=== PATIENT | male | born 1985 | race Two or more races ===

== ENCOUNTER 2023-03-18 08:30 | Emergency (ER) | payer OTHER, SELFPAY ==
[2023-03-18] VITALS (13 sets, daily range): BP systolic 132; BP diastolic 80–87; PULSE 81–96; RESP 12–20; TEMP 36.8; O2SAT 92–99; BMI 45.6
--- NOTE | 2023-03-18 08:47 | ECG_ITS ---
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
--- NOTE | 2023-03-18 08:48 | ED.GENADUL1 ---
HPI - General Adult General Chief complaint: Shortness of Breath/Dyspnea Stated complaint: SHORTNESS OF BREATH Time Seen by Provider: 03/18/23 08:47 Source: patient Mode of arrival: walk-in History of Present Illness HPI narrative: Patient is a 38-year-old male who is presenting to the Emergency Room today with chief complaint of 2 weeks of sinus congestion, pressure, dry cough, rhinorrhea and flulike symptoms. Patient smokes cigarettes. Patient has a history of asthma, diabetes, cholesterol. Patient takes oral tablets and does long-acting insulin for his diabetes, he does have an client experience specialist. Patient is taking no medication bunb-mot-opjnvgr in the past 2 weeks to help with any of his symptoms. Patient did not go to work today. Patient did not speak to his PCP or client experience specialist about his symptoms in the past 2 weeks. Patient has no other sick contacts, no traveling. No chest pain or shortness of breath. No abdominal pain, nausea or vomiting. Patient has no other acute complaints. . All systems are negative except as noted/marked. All systems reviewed and otherwise negative. . Nurses note and vital signs reviewed and patient is not hypoxic. General: The patient appears well and in no apparent distress. Patient is resting comfortably on cart. Patient is not toxic, lethargic, or listless Skin: Warm, dry, no pallor noted. There is no rash noted. No petechiae, purpura. Head: Normocephalic, atraumatic; Mild tenderness to paalpation to bilateral anterior frontal and maxillary sinuses, Eye: Normal conjunctiva, no drainage, EOMI. PERRL Ears, Nose, Mouth, and Throat: oral mucosa is moist. Nares patent. Mouth without vesicles. Clear drainage noted to the posterior pharynx. Cardiovascular: Regular Rate and Rhythm, no murmur, gallop, rub Respiratory: Patient is in no distress, no accessory muscle use, lungs are clear to auscultation, no wheezing, rales or rhonchi Back: non-tender, no CVA tenderness bilaterally to percussion. No CT LS midline pain GI: soft, obese, no tenderness to palpation, no masses appreciated. No rebound, guarding, or rigidity noted. No flank pain bilateral, No distention Musculoskeletal: Patient has full range of motion of all of the extremities, no motor, sensory, or focal neurological deficits Neurological: A&O x3, normal speech Psychiatric: Cooperative Related Data Home Medications Medication Instructions Recorded Confirmed albuterol sulfate 90 mcg/actuation 2 puff inhalation Q4H PRN 03/18/23 03/18/23 aerosol inhaler shortness of breath or wheezing fenofibrate 160 mg tablet 160 mg PO DAILY 03/18/23 03/18/23 insulin aspart U-100 100 unit/mL 1 sliding scale dose subcut DAILY 03/18/23 03/18/23 (3 mL) subcutaneous pen insulin glargine-yfgn 100 unit/mL 50 unit subcut BID 03/18/23 03/18/23 (3 mL) subcutaneous pen ipratropium 20 mcg-albuterol 100 1 puff inhalation BID 03/18/23 03/18/23 mcg/actuation mist for inhalation (Combivent Respimat) lisinopril 20 mg tablet 20 mg PO DAILY 03/18/23 03/18/23 metformin 1,000 mg tablet 1,000 mg PO BID 03/18/23 03/18/23 rosuvastatin 20 mg tablet 20 mg PO DAILY 03/18/23 03/18/23 sertraline 50 mg tablet 75 mg PO Q24H 03/18/23 03/18/23 Previous Rx's Medication Instructions Recorded doxycycline hyclate 100 mg tablet 100 mg PO BID 10 days #20 tabs 03/18/23 Allergies Allergy/AdvReac Type Severity Reaction Status Date / Time No Known Drug Allergies Allergy Verified 03/18/23 08:40 PFSH PFSH Social History Smoking status: Current every day smoker Exam Constitutional Vital Signs, click to edit/add: Last Vital Signs Temp 98.3 F 03/18/23 08:36 Pulse 96 H 03/18/23 09:10 Resp 19 03/18/23 09:10 BP 132/87 03/18/23 08:39 Pulse Ox 95 03/18/23 10:10 O2 Del Method Room Air 03/18/23 08:36 Course Vital Signs Vital signs: Vital Signs Temperature 98.3 F 03/18/23 08:36 Pulse Rate 86 03/18/23 08:36 Respiratory Rate 20 03/18/23 08:36 Blood Pressure 132/87 03/18/23 08:36 Pulse Oximetry 96 03/18/23 08:36 Oxygen Delivery Method Room Air 03/18/23 08:36 Temperature 98.3 F 03/18/23 08:36 Pulse Rate 96 H 03/18/23 09:10 Respiratory Rate 19 03/18/23 09:10 Blood Pressure 132/87 03/18/23 08:39 Pulse Oximetry 95 03/18/23 10:10 Oxygen Delivery Method Room Air 03/18/23 08:36 Medical Decision Making MDM Narrative Medical decision making narrative: Patient chest x-ray shows no acute cardiopulmonary disease, no infiltrate, no effusion. Education was done at bedside and taking olxn-zap-xiboige products and medications to help with sinus symptoms along with antibiotic because patient is diabetic and a smoker and had sinus symptoms for 2 weeks. Patient will follow-up with PCP. Patient is instructed to take all medications as listed on his discharge papers. No questions at discharge ECG Data Attestation: I personally reviewed and interpreted this ECG as follows: (EKG interpretation. Normal sinus rhythm 81 beats a minute. Normal axis deviation. No acute ST elevation, no acute ectopy. T-wave inversion in lead V6, also in aVF and lead 3. Nonspecific EKG changes, ST depression and T-wave inversion in lead aVF, no reciprocal changes. ) Interpretation: Compared to old EKG on 01/12/2021, patient had T wave inversion in V6 at that time, changes in aVF are new. In comparing EKG to 11/16/2021, this is similar to EKG in 01/12/2021, and different from today's EKG. Today's EKG shows ST depression with T-wave inversion in aVF, V3 has T-wave inversion as well. No ST elevation and today's EKG. Discharge Plan Discharge Chief Complaint: Shortness of Breath/Dyspnea Clinical Impression: URI (upper respiratory infection), Sinusitis, Continuous tobacco abuse Patient Disposition: Home, Self-Care Time of Disposition Decision: 10:36 Condition: Fair Prescriptions / Home Meds: New doxycycline hyclate 100 mg tablet 100 mg PO BID 10 Days Qty: 20 0RF No Action albuterol sulfate 90 mcg/actuation HFA aerosol inhaler 2 puff INHALATION Q4H PRN (Reason: shortness of breath or wheezing) Combivent Respimat 20-100 mcg/actuation mist 1 puff INHALATION BID lisinopril 20 mg tablet 20 mg PO DAILY metformin 1,000 mg tablet 1,000 mg PO BID rosuvastatin 20 mg tablet 20 mg PO DAILY sertraline 50 mg tablet 75 mg PO Q24H fenofibrate 160 mg tablet 160 mg PO DAILY insulin aspart U-100 100 unit/mL (3 mL) insulin pen 1 sliding scale dose SUBCUT DAILY insulin glargine-yfgn 100 unit/mL (3 mL) insulin pen 50 unit SUBCUT BID Instructions: How to Stop Smoking (ED), Sinusitis (ED), Upper Respiratory Infection (ED) Additional Instructions: Using gebu-qch-praaooa DayQuil, NyQuil, Flonase. Use Tylenol Motrin for aches and pains. Use anti-inflammatories to help with inflammation sinuses. Increase fluids. Follow-up with her PCP if no improvement in the next week. Take medication and all ozmt-fed-nmzkxae medications as prescribed. Stand Alone Forms: Portal Instructions Referrals: CARYL DRIVER [Primary Care Provider] - 1 week
[2023-03-18] MEDS: IPRATROPIUM/ALBUTEROL SULFATE 3 ML AMPUL.NEB IH (09:00)
--- NOTE | 2023-03-18 09:35 | XR_ITS ---
The [address] [address] Patient Name: NICKY OCONNOR MRN: [id number] date: 1985 Sex: M Assigned Patient Location: ER Current Patient Location: Accession/Order Number: [id number] Exam Date: 03/18/2023 09:30 Report Date: 03/18/2023 09:50 At the request of: HERMES HERNANDEZ Procedure: XR chest 2V EXAM: Chest, PA and lateral: HISTORY: Shortness of breath and congestion for a few days. History of asthma. Comparison studies: 10/24/2022 TECHNIQUE: Frontal and lateral views of the chest were obtained. FINDINGS: The lungs are well-inflated and clear. The heart is normal in size. No obvious mass or adenopathy is seen. Osseous structures are normal. XR/XR chest 2V IMPRESSION: No acute process in the lungs. If clinical concern remains, however, consider further evaluation with CT of the chest. Electronically authenticated by: SINGH GIRALDO Date: 03/18/2023 09:50
== END 2023-03-18 10:45 | disposition home or self-care (01) ==
PROVIDERS: Emergency Provider Emergency Medicine; PCP Family Medicine
DX: J06.9 Acute upper respiratory infection, unspecified (principal); J32.9 Chronic sinusitis, unspecified; F17.210 Nicotine dependence, cigarettes, uncomplicated; Z79.899 Other long term (current) drug therapy; J45.909 Unspecified asthma, uncomplicated; E11.9 Type 2 diabetes mellitus without complications; E78.00 Pure hypercholesterolemia, unspecified; Z79.4 Long term (current) use of insulin; Z79.84 Long term (current) use of oral hypoglycemic drugs
CPT/HCPCS: 71046; 93005; 94640; 99284

== ENCOUNTER 2025-03-01 08:49 | Outpatient (OUT) | payer OTHER, SELFPAY ==
--- NOTE | 2025-03-01 09:00 | ECG_ITS ---
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
== END 2025-03-01 08:50 | disposition home or self-care (01) ==
LOC: CARD 08:50
PROVIDERS: PCP Family Medicine; Visit Provider Nurse Practitioner
DX: E78.2 Mixed hyperlipidemia (principal); E11.65 Type 2 diabetes mellitus with hyperglycemia; Z79.4 Long term (current) use of insulin; I10 Essential (primary) hypertension; R07.89 Other chest pain
CPT/HCPCS: 93005

== ENCOUNTER 2025-04-10 10:16 | Outpatient (OUT) | payer OTHER, SELFPAY ==
--- OUTSIDE RECORDS SUMMARY | 2025-04-10 10:20 | XMS_ITS | Encounter Summary ---
Author Organization [facility] Address [address] [place] [address] Care Team Providers Care Hospital Insurance Clerk Name Role Phone Alison Wilson MD Unavailable [phone] Carroll Del Valle MD Primary Care Provider [phone] Anabel Waggoner NP Unavailable [phone] Encounter Details Date Type Department Care Team (Late st Contact Info) Description 02/12/2025 Abstract [facility] [address] [facility] [address] [place] [phone] Elizabeth Anand, [address] [facility] [address] [place] [address] Social History Tobacco Use Types Packs/Day Years Used Date Smoking Tobacco: Former Cigarettes 0.5 26.7 S tarted: 06/27/1997 Passive Smoke Exposure: Current Smokeless Tobacco: Current Alcohol Use Standard Drinks/Week Comments Not Currently 0 (1 standard drink = 0.6 oz pure alcohol) caffeine: more than 4 cups per day B1300 Health Literacy Answer Date Recor ded How often do you need to hav e someone help you when you read instructions, pamphlets, or other written material from your doctor or pharmacy? Never 12/25/2023 Social Connection and Isolation Panel Answer Date Recorded In a typical week, how many times do you talk on the phone with family, friends, or neighbors? Once a week 12/25/2023 How often do you get together with friends or re latives? Never 12/25/2023 How often do you attend anabaptism or synagogue serv ices? Never 12/25/2023 Do you belong to any clubs o r organizations such as anabaptism groups, unions, fraternal or athletic groups, or school groups? No 12/25/2023 How often do you attend meet ings of the clubs or organizations you belong to? Never 12/25/2023 Are you , , di vorced, , never , or living with a partner? 12/25/2023 AUDIT-C Answer Date Recorded Q1: How often do you have a drink containing alc ohol? Monthly or less 12/25/2023 Q2: How many drinks containi ng alcohol do you have on a typical day when you are drinking? 3 or 4 12/25/2023 Q3: How often do you have si x or more drinks on one occasion? Less than monthly 12/25/2023 Overall Financial Resource Strain (CARDIA) Answe r Date Recorded How hard is it for you to pa y for the very basics like food, housing, medical care, and heating? Very hard 12/25/2023 PHQ-2 Answer Date Recorded Patient Health Questionnaire-2 Score 0 11/20/2024 [facility] - Occupational Stress Questionnaire Answer Date Recorded Do you feel stress - tense, restless, nervous, or anxious, or unable to sleep at night because your mind is troubled all the time - these days? Only a little 12/25/2023 Exercise Vital Sign Answer Date Recorde d On average, how many days pe r week do you engage in moderate to strenuous exercise (like a brisk walk)? 2 days 12/25/2023 On average, how many minutes do you engage in exercise at this level? 10 min 12/25/2023 Hunger Vital Sign Answer Date Recorded Within the past 12 months, y ou worried that your food would run out before you got the money to buy more. Often true 12/25/19 24 Within the past 12 months, t he food you bought just didn't last and you didn't have money to get more. Often true 12/25/2023 PRAPARE - Transportation Answer Date Re corded In the past 12 months, has l ack of transportation kept you from medical appointments or from getting medications? No 11/27 In the past 12 months, has l ack of transportation kept you from meetings, work, or from getting things needed for daily living? No 12/25/2023 Housing Stability Vital Sign Answer Daniel e Recorded In the last 12 months, was t here a time when you were not able to pay the mortgage or rent on time? Yes 12/25/2023 In the past 12 months, how m any times have you moved where you were living? 4 12/25/2023 Homeless in the Last Year Not on file 2023 Sex and Gender Information Value Date Recorded Sex Assigned at Not on file Legal Sex Male 6:55 PM EDT Gender Identity Not on file Sexual Orientation Not on file documented as of this encounter Plan of Treatment Not on file documented as of this encounter Visit Diagnoses Not on filedocumented in this encounter Care Teams Hospital Insurance Clerk Relationship Specialty Start Date End Date Carroll Del Valle MD [address] [place] [id number] PCP - General Family Medicine 06/18/24 Alison Wilson MD [address] [place] [address] Referring Physician Neurology 04/28/23 Anabel Waggoner NP [address] [place] [address] Nurse Practitioner Family Medicine 07/25/24 documented as of this encounter
--- OUTSIDE RECORDS SUMMARY | 2025-04-10 10:20 | XMS_ITS | Encounter Summary ---
Author Organization [facility] Address [address] [place] [address] Care Team Providers Care Gi Asst Name Role Phone Alison Wilson MD Unavailable [phone] Hermes Willard MD Primary Care Provider [phone] Carroll Del Valle MD Primary Care Provider [phone] Anabel Waggoner NP Unavailable [phone] Encounter Details Date Type Department Care Team (Late st Contact Info) Description 01/04/2024 Abstract [facility] [address] [facility] [address] [place] [address] Elizabeth Anand, DO [address] [facility] [address] [place] [address] Social History Tobacco Use Types Packs/Day Years Used Date Smoking Tobacco: Every Day Cigarettes Started: 06/27/1997 Smokeless Tobacco: Current Alcohol Use Standard Drinks/Week Comments Not Currently 4 (1 standard drink = 0.6 oz pure [...] Never 12/25/2023 How often do you attend worship or holiness serv ices? Never 12/25/2023 Do you belong to any clubs o r organizations such as worship groups, unions, fraternal or athletic groups, or [...] Date Recorded Patient Health Questionnaire-2 Score 0 01/02/2024 [facility] - Occupational Stress Questionnaire Answer Date Recorded [...] on filedocumented in this encounter Care Teams Gi Asst Relationship Specialty Start Date End Date Hermes Willard MD [address] [place] [address] PCP - General Family Medicine 12/22/23 06/17/24 Carroll Del Valle MD [address] [place] [address] PCP - General Family Medicine 06/18/24 Alison Wilson MD [address] [place] [address] Referring Physician Neurology 04/28/23 Anabel Waggoner NP [address] [place] [address] Nurse Practitioner Family Medicine 07/25/24 documented as of this encounter
--- OUTSIDE RECORDS SUMMARY | 2025-04-10 10:20 | XMS_ITS | Encounter Summary ---
Author Organization [facility] Address [address] [place] [address] Care Team Providers Care Video Games Storywriter Name Role Phone Alison Wilson MD Unavailable [phone] Carroll Del Valle MD Primary Care Provider [phone] Anabel Waggoner NP Unavailable [phone] Encounter Details Date Type Department Care Team (Late st Contact Info) Description 07/09/2024 Orders Only [facility] [address] [facility] [place] [phone] Anabel Waggoner NP Social History Tobacco Use Types Packs/Day Years [...] Never 12/25/2023 How often do you attend anglican or latter day serv ices? Never 12/25/2023 Do you belong to any clubs o r organizations such as anglican groups, unions, fraternal or athletic groups, or [...] Date Recorded Patient Health Questionnaire-2 Score 0 06/18/2024 [facility] - Occupational Stress Questionnaire Answer [...] on file documented as of this encounter Procedures Procedure Name Priority Date/Time Associated Diagnosis Comments DIABETIC RETINOPATHY SCREENING - OU - BOTH EYES Routine 07/09/2024 10:12 AM EST documented in this encounter Results * Diabetic Retinopathy Screening - OU - Both Eyes (07/09/2024 10:12 AM EST) Anatomical Region Laterality Modality Head Other Anabel Waggoner MARKET RESEARCH CONSULTANT OPHTH PHOTOGRAPHY Final Result documented in this encounter Visit Diagnoses Not on filedocumented in this encounter Care Teams Video Games Storywriter Relationship Specialty Start Date End Date Carroll Del Valle MD [address] [place] [phone] PCP - General Family Medicine 06/18/24 Alison Wilson MD [address] [place] [address] Referring Physician Neurology 04/28/23 Anabel Waggoner NP [address] [place] [address] Nurse Practitioner Family Medicine 07/25/24 documented as of this encounter
--- OUTSIDE RECORDS SUMMARY | 2025-04-10 10:20 | XMS_ITS | Encounter Summary ---
Author Organization [facility] Address [address] [place] [address] Care Team Providers Care Combination Operator Name Role Phone Alison Wilson MD Unavailable [phone] Carroll Del Valle MD Primary Care Provider [phone] Anabel Waggoner NP Unavailable Encounter Details Date Type Department Care Team (Late st Contact Info) Description 02/12/2025 Abstract [facility] [address] [facility] [place] [address] Elizabeth Anand, DO [address] [facility] [address] [place] [address] Social History Tobacco Use Types Packs/Day Years [...] Never 12/25/2023 How often do you attend protestant or scientology serv ices? Never 12/25/2023 Do you belong to any clubs o r organizations such as protestant groups, unions, fraternal or athletic groups, or [...] Recorded Patient Health Questionnaire-2 Score 0 11/20/2024 [facility] - Occupational Stress Questionnaire Answer Date Recorded [...] on filedocumented in this encounter Care Teams Combination Operator Relationship Specialty Start Date End Date Carroll Del Valle MD [address] [place] [address] PCP - General Family Medicine 06/18/24 Alison Wilson MD [address] [place] [address] Referring Physician Neurology 04/28/23 Anabel Waggoner NP [address] [place] [address] Nurse Practitioner Family Medicine 07/25/24 documented as of this encounter
--- OUTSIDE RECORDS SUMMARY | 2025-04-10 10:20 | XMS_ITS | Clinical Summary ---
Author Organization [facility] Address [id number] [address] [place] [address] Care Team Providers Care Chronic Disease Epidemiologist Name Role Phone MarionRadha umana Vince [facility] Primary Care Provider Allergies Active Allergy Reactions Criticality Noted Date Comments Amoxicillin-Pot Clavulanate 01/22/20 22 Varenicline 01/21/2022 Hydrocodone 01/21/2022 Medications insulin detemir (LEVEMIR) 100 unit/mL injection Inject 40 Units under the skin 2 (two) times a day. Active albuterol (PROVENTIL HFA;VENTOLIN HFA) 90 mcg/actuation inhaler Inhale 2 puffs every 4 (four) hours as needed for wheezing. Active ipratropium/albuterol sulfate (COMBIVENT RESPIMAT INHL) Inhale 1 puff every 6 (six) hours as needed. Active amLODIPine (NORVASC) 10 mg tablet Take 10 mg by mouth daily. Active canagliflozin (INVOKANA) 100 mg tablet Take 100 mg by mouth daily. Active lisinopril 20 mg tablet 20 mg, hydroCHLOROthiazide 12.5 mg tablet 12.5 mg Take 1 tablet by mouth daily. Active metFORMIN (GLUCOPHAGE) 500 mg tablet Take 500 mg by mouth 2 (two) times a day with meals. Active metoprolol succinate XL (TOPROL XL) 25 mg 24 hr tablet Take 25 mg by mouth daily. Active montelukast (SINGULAIR) 10 mg tablet Take 10 mg by mouth nightly. Active insulin aspart U-100 (NovoLOG) 100 unit/mL insulin pen Inject 2 Units under the skin 3 (three) times a day 30 (thirty) minutes before meals. TAKE 2-6 UNITS WITH MEALS BASED ON SLIDING SCALE Active sertraline (ZOLOFT) 100 mg tablet Take 100 mg by mouth daily. Active methylPREDNISolone (MEDROL, KRIS,) 4 mg tablet follow package directions 21 tablet 01/22/20 22 Active Additional Information Patient not taking.Reported on 06/03/2024 albuterol (PROVENTIL HFA;VENTOLIN HFA) 90 mcg/actuation inhalerIndications:Acu te bronchitis due to COVID-19 virus Inhale 2 puffs every 4 (four) hours as needed for wheezing. 18 g 06/03/20 24 Active benzonatate (TESSALON PERLES) 100 mg capsule Take 1 capsule (100 mg total) by mouth every 8 (eight) hours. 21 capsule 06/03/20 24 Active Encounters Date Type Department Care Team Description 02/26/2025 8:24 AM EDT - 02/26/2025 11:59 PM EDT Hospital Encounter [facility] - Radiology [address] [place] [address] Cervical pain (neck) Discharge Disposition: Home 02/26/2025 8:24 AM EDT - 02/26/2025 11:59 PM EDT Hospital Encounter [facility] - Radiology [address] [place] [address] Arthritis of both hands Discharge Disposition: Home 02/26/2025 8:20 AM EDT - 02/26/2025 8:23 AM EDT Hospital Encounter [facility] - Radiology [address] [place] [address] Arthritis of both hands Discharge Disposition: Home 02/26/2025 Travel from Last 3 Months Social History Tobacco Use Types Packs/Day Years Used Date Smoking Tobacco: Former Cigarettes Smokeless Tobacco: Never Tobacco Cessation:Counseling Given: Not Answered Alcohol Use Standard Drinks/Week Comments Not Currently 0 (1 standard drink = 0.6 oz pur e alcohol) Childcare Answer Date Recorded Childcare Unknown 12/06/2018 Employment Answer Date Recorded Employment Unknown 12/06/2018 Hunger Screening Answer Date Recorded Within the past 12 months we worried whether our food would run out before we got money to buy more. Never True 06/03/2024 Within the past 12 months th e food we bought just didn't last and we didn't have money to get more. Never True 06/03/2024 Purpose - Life Answer Date Recorded Purpose and direction in life Unknown Sex and Gender Information Value Date Recorded Sex Assigned at Not on file Legal Sex Male 11:32 AM EDT Gender Identity Not on file Sexual Orientation Not on file Last Filed Vital Signs Vital Sign Reading Time Taken Comments Blood Pressure 122/71 06/03/2024 4:45 AM EST Pulse 106 06/03/2024 4:16 AM EST Temperature 37.2 C (98.9 F) 06/03/2024 3:51 AM EST Respiratory Rate 16 06/03/2024 4:16 AM EST Oxygen Saturation 93% 06/03/2024 4:16 AM EST Inhaled Oxygen Concentration - - Weight 136.1 kg (300 lb) 06/03/2024 3:49 AM EST Height 172.7 cm (5' 8 ) 06/03/2024 3:49 AM EST Body Mass Index 45.61 06/03/2024 3:49 AM EST Plan of Treatment Health Maintenance Due Date Last Done Comments Depression Screening 1998 Adult BMI Follow Up Plan 02/26/2004 COVID-19 Vaccine ( season) 2025, 03/30/2021 Influenza Vaccine 2025 Adult BMI Screening 06/03/2025 06/03/2024 Tobacco Screening 06/03/2025 06/03/2024 DTaP,Tdap and Td Vaccines (3 - Td or Tdap) 01/14/2030 01/15/2020, 1986 Medical Devices Not on file Procedures Procedure Name Priority Date/Time Associated Diagnosis Comments XR SPINE CERVICAL 3 VWS OR LESS Routine 02/26/2025 8:42 AM EDT Cervical pain (neck) XR HAND RT MIN 3 VWS Routine 02/26/2025 8:42 AM EDT Arthritis of both hands XR HAND LT MIN 3 VWS Routine 02/26/2025 8:41 AM EDT Arthritis of both hands from Last 3 Months Results * X-ray spine cervical 3 views or less (02/26/2025 8:42 AM EDT) Anatomical Region Laterality Modality MSK, Neuro, Spine, C-spine N/A Compu tarah Radiography 02/27/2025 10:1 4 PM EDT Narrative 02/27/2025 10:15 PM EDT XR SPINE CERVICAL 3 VWS OR LESS History: Cervical pain (neck) Findings: There is no fracture or destructive lesion. Impression: * No acute findings. * Diffuse disc disease and facet arthritis * Consider MRI if you would like to assess for stenosis and/or radiculopathy or other occult process. Finalized by Xavier Escobar MD on 02/27/2025 10:15 PM Procedure Note Xavier Escobar MD - 02/27/2025 XR SPINE CERVICAL 3 VWS OR LESS History: Cervical pain (neck) Findings: There is no fracture or destructive lesion. Impression: * No acute findings. * Diffuse disc disease and facet arthritis * Consider MRI if you would like to assess for stenosis and/orradiculopathy or other occult process. Finalized by Xavier Escobar MD on 02/27/2025 10:15 PM Radha Vegas ST[employer]OR [employer] IM DIAGNOSTIC IMAGING ORDERABLES Final Result * X-ray hand right minimum 3 views (02/26/2025 8:42 AM EDT) Anatomical Region Laterality Modality Upper Extremities, MSK, Hand Com puted Radiography 02/27/2025 10:1 4 PM EDT Narrative 02/27/2025 10:14 PM EDT XR HAND RT MIN 3 VWS Arthritis of both hands Findings: There is grossly no fracture or destructive lesion. Impression: * No acute findings. Mild degenerative changes of the interphalangeal joints and second MPJ. No bone erosions or demineralization. * Consider MRI if you suspect occult process. Finalized by Xavier Escobar MD on 02/27/2025 10:14 PM Procedure Note Xavier Escobar MD - 02/27/2025 XR HAND RT MIN 3 VWS Arthritis of both hands Findings: There is grossly no fracture or destructive lesion. Impression: * No acute findings. Mild degenerative changes of the interphalangealjoints and second MPJ. No bone erosions or demineralization. * Consider MRI if you suspect occult process. Finalized by Xavier Escobar MD on 02/27/2025 10:14 PM Radha Vegas [facility]ABLES Final Result * X-ray hand left minimum 3 views (02/26/2025 8:41 AM EDT) Anatomical Region Laterality Modality Upper Extremities, MSK, Hand Left Com puted Radiography 02/27/2025 10:1 3 PM EDT Narrative 02/27/2025 10:14 PM EDT XR HAND LT MIN 3 VWS Arthritis of both hands Findings: There is grossly no fracture or destructive lesion. Impression: * No acute findings. Mild degenerative changes of the interphalangeal joints. No bone erosions or demineralization. * Consider MRI if you suspect occult process. Finalized by Xavier Escobar MD on 02/27/2025 10:14 PM Procedure Note Xavier Escobar MD - 02/27/2025 XR HAND LT MIN 3 VWS Arthritis of both hands Findings: There is grossly no fracture or destructive lesion. Impression: * No acute findings. Mild degenerative changes of the interphalangealjoints. No bone erosions or demineralization. * Consider MRI if you suspect occult process. Finalized by Xavier Escobar MD on 02/27/2025 10:14 PM Radha Vegas [facility] DI[facility] ORDERABLES Final Result from Last 3 Months Insurance [employer] Care Teams Chronic Disease Epidemiologist Relationship Specialty Start Date End Date Radha Vegas, [employer] [facility] [address] [place] [address] PCP - General Nurse Practitioner 02/26/25
--- OUTSIDE RECORDS SUMMARY | 2025-04-10 10:20 | XMS_ITS | Encounter Summary ---
Author Organization [facility] Address [address] [place] [address] Care Team Providers Care Weather Forcaster Name Role Phone Alison Wislon MD Unavailable [phone] Carroll Del Valle MD Primary Care Provider [phone] Anabel Waggoner NP Unavailable [phone] Reason for Visit * Reason Onset Date Comments Med Refill 12/12/2024 Encounter Details Date Type Department Care Team (Late st Contact Info) Description 12/12/2024 Refill [facility] [address] [place] [address] Radha Vegas NP [address] [place] [address] Moderate persistent asthma, unspecified whether complicated (HCC) Social History Tobacco Use Types Packs/Day Years [...] Never 12/25/2023 How often do you attend jehovah's witness or mormonism serv ices? Never 12/25/2023 Do you belong to any clubs o r organizations such as jehovah's witness groups, unions, fraternal or athletic groups, or [...] Recorded Patient Health Questionnaire-2 Score 0 11/20/2024 [facility] - Occupational Stress [...] medical appointments or from getting medications? No 06/3 In the past 12 months, has l [...] documented as of this encounter Visit Diagnoses Diagnosis Moderate persistent asthma, unspecified whether complicated (HCC) documented in this encounter Care Teams Weather Forcaster Relationship Specialty [place] [address] [place] [id number] PCP - General Family Medicine 06/18/24 [place] [address] [place] [address] Referring Physician Neurology 04/28/23 Anabel Waggoner NP [address] [place] [id number] Nurse Practitioner Family Medicine 07/25/24 documented as of this encounter
--- OUTSIDE RECORDS SUMMARY | 2025-04-10 10:20 | XMS_ITS | Encounter Summary ---
Author Organization [facility] Address [address] [place] [address] Care Team Providers Care Power Chisel Operator Name Role Phone Alison Wlison MD Unavailable [phone] Carroll Del Valle MD Primary Care Provider [phone] Anabel Waggoner NP Unavailable [phone] Reason for Visit * Reason Comments Med Refill Encounter Details Date Type Department Care Team (Late st Contact Info) Description 12/12/2024 Refill [facility] [address] [place] [address] Radha Vegas NP [address] [address] Moderate persistent asthma, unspecified whether complicated (HCC) [...] How often do you attend anabaptism or mormonism serv ices? Never 12/25/2023 Do [...] No 12/25/2023 Housing Stability Vital Sign Answer Daneil e Recorded In the last 12 months, [...] (HCC) documented in this encounter Care Teams Power Chisel Operator Relationship Specialty Start Date End Date Carroll Del Valle MD [address] [place] [phone] PCP - General Family Medicine 06/18/24 Alison Wilson MD [address] [place] [id number] Referring Physician Neurology 04/28/23 Anabel Waggoner NP [address] [place] [address] Nurse Practitioner Family Medicine 07/25/24 documented as of this encounter
--- OUTSIDE RECORDS SUMMARY | 2025-04-10 10:20 | XMS_ITS | Clinical Summary ---
Author Organization [facility] Address [address] [place] [address] Care Team Providers Care Behavioral Scientist Name Role Phone Alison Wilson MD Unavailable [phone] Carroll Del Valel MD Primary Care Provider [phone] Anabel Waggoner NP Unavailable Allergies Active Allergy Reactions Criticality Noted Date Comments Amoxicillin-Pot Clavulanate 01/21/2022 Hydrocodone 01/07/2023 Other Reaction(s): Unknown Penicillin G 01/07/2023 Other Reaction(s): Unknown Varenicline Hallucinations,GI intolerance 01/21/2022 Other Reaction(s): Unknown Medications amLODIPine (Norvasc) 10 MG tablet Take 10 mg by mouth in the morning. Active Lancets (iMOSPHERETouch Delica Plus [id number]) misc 023 Active lisinopril 20 MG tabletIndications :Primary hypertension Take 1 tablet (20 mg) by mouth Daily 30 tablet 2 024 Active pen needle 33G x 4 mm miscIndications:T ype 2 diabetes mellitus without complication, with long-term current use of insulin (HCC) Injections subcutaneous 4 times daily 400 each 3 024 Active Insulin Syringe 31G X 5/16 1 ML misc USE DIRECTED FIVE TIMES DAILY 024 Active fenofibrate (Triglide) 160 MG tabletIndications :Mixed hyperlipidemia TAKE 1 TABLET(160 MG) BY MOUTH DAILY 30 tablet 2 025 Active BD Pen Needle Mona 2nd Gen 32G X 4 MM misc USE DIRECTED FOUR TIMES DAILY 024 Active glucose blood (OneTouch Ultra) test stripIndications: Type 2 diabetes mellitus without complication, with long-term current use of insulin ([facility]) Use as instructed 6 times a day 600 each 3 025 Active rosuvastatin (Crestor) 20 MG tabletIndications :Mixed hyperlipidemia TAKE 1 TABLET(20 MG) BY MOUTH DAILY 90 tablet 025 Active Fluticasone-Salme terol 250-50 MCG/ACT aerosol powderIndications :Moderate persistent asthma, unspecified whether complicated (HCC) Inhale 1 puff in the morning and 1 puff before bedtime. Rinse mouth after use. 1 each 3 025 Active ipratropium-albut chiqui (Combivent Respimat) 20-100 MCG/ACT inhalerIndication s:Moderate persistent asthma, unspecified whether complicated (HCC) Inhale 1 puff in the morning and 1 puff at noon and 1 puff in the evening and 1 puff before bedtime. 4 g 2 025 Active montelukast (Singulair) 10 MG tabletIndications :Moderate persistent asthma, unspecified whether complicated (HCC) Take 1 tablet (10 mg) by mouth at bedtime 30 tablet 2 025 Active meloxicam (Mobic) 15 MG tablet Take 15 mg by mouth Daily 025 Active insulin glargine-yfgn (Semglee-yfgn) 100 UNIT/ML penIndications:Ty pe 2 diabetes mellitus without complication, with long-term current use of insulin ([facility]) ADMINISTER 50 UNITS UNDER THE SKIN TWICE DAILY 30 mL 1 025 Active albuterol HFA 90 mcg/act inhalerIndication s:Moderate persistent asthma, unspecified whether complicated (HCC) Inhale 2 puffs every 6 (six) hours if needed for wheezing 8.5 g 025 Active insulin aspart FlexPen (NovoLOG) 100 UNIT/ML penIndications:Ty pe 2 diabetes mellitus with other specified complication, with long-term current use of insulin ([facility]) INJECT 50 UNITS BREAKFAST AND LUNCH, 60 UNITS DINNER WITH 2:30 CORRECTION FOR SUGAR GREATER THAN 150, MAX OF 200 UNITS PER DAY 60 mL 3 025 Active insulin aspart FlexPen (NovoLOG) 100 UNIT/ML penIndications:Ty pe 2 diabetes mellitus with other specified complication, with long-term current use of insulin ([facility]) 50 units breakfast/lunch , 60 units dinner PLUS CORRECTION 2:30>150MG/DL MAX OF 200 UNITS DAILY 60 mL 3 025 2024 Discontinued Active Problems Problem Noted Date Diagnosed Date Cervical pain (neck) 01/28/2025 Assessment & Plan (01/28/2025 6:44 PM EDT): Check xray Consider updated EMG pending xray results Chest tightness 01/28/2025 Assessment & Plan (01/28/2025 6:46 PM EDT): Check EKG, will try to track down old cath report Type 2 diabetes mellitus with other specified co mplication 09/18/2024 Body mass index (BMI) 45.0-49.9, adult Mixed hyperlipidemia 09/18/2024 Assessment & Plan (01/28/2025 7:50 AM EDT): On statin and fenofibrate Check labs yearly and prn dose changes Assessment & Plan (09/18/2024 4:23 PM EDT): On statin and fenofibrate Check labs yearly and prn dose changes Hypertriglyceridemia 09/18/2024 Assessment & Plan (09/18/2024 4:24 PM EDT): On statin and fenofibrate Check labs yearly and prn dose changes Pancreatitis ([facility]) 09/18/2024 Migraines 09/18/2024 Depression 09/18/2024 Wheezing 08/16/2024 Class 3 severe obesity due t o excess calories with serious comorbidity and body mass index (BMI) of 50.0 to 59.9 in adult 06/22/2024 Assessment & Plan (01/28/2025 7:50 AM EDT): Discussed with patient their BMI (actual, verses recommended). We have also discussed lifestyle modifications: attempts to perform physical activity as chronic conditions allow, also to monitor dietary intake: increasing protein/fruits/veggies and lowering carb intake (unless contraindicated). Limit sodas, juices, and sugary drinks. Assessment & Plan (09/18/2024 7:09 AM EDT): Discussed with patient their BMI (actual, verses recommended). We have also discussed lifestyle modifications: attempts to perform physical activity as chronic conditions allow, also to monitor dietary intake: increasing protein/fruits/veggies and lowering carb intake (unless contraindicated). Limit sodas, juices, and sugary drinks. Also discussed oral medications that can be utilized for weight loss, as well as surgical options for weight loss. Arthritis of hand 01/07/2023 Assessment & Plan (09/18/2024 5:44 PM EDT): Reports a lot of pain and stiffness in hands, did take meloxicam in the past, as well as nabumatome no as helpful Would like meloxicam refilled Cervical strain 01/07/2023 Migraine without aura, intractable, with status migrainosus 01/07/2023 NAFLD (nonalcoholic fatty liver disease) 023 Obstructive sleep apnea 01/07/2023 Assessment & Plan (01/28/2025 7:46 AM EDT): You have a diagnosis of obstructive sleep apnea. It is recommended that you wear your PAP device any time while in bed sleeping. Not using the PAP device can increase your risk of elevated/uncontrolled high blood pressure, atrial fibrillation, heart attack, stroke, or sudden . Compliance with PAP: does not wear Tried various meds to help sleep would tear off mask Assessment & Plan (09/18/2024 3:47 PM EDT): You have a diagnosis of obstructive sleep apnea. It is recommended that you wear your PAP device any time while in bed sleeping. Not using the PAP device can increase your risk of elevated/uncontrolled high blood pressure, atrial fibrillation, heart attack, stroke, or sudden . Compliance with PAP: does not wear Tried various meds to help sleep would tear off mask Assessment & Plan (02/09/2024 8:44 AM EDT): Saw pulmonolgy several years ago, was dx with JUDITH and prescribed CPAP. Does not wear CPAP due to feel restricted. Has tried Nasal prongs and full face mask. Does not like either. Is interested in Inspire device. Referral sent to Dr. Moreland in [place], [place] for Inspire Occipital neuralgia 01/07/2023 Postconcussion syndrome 01/07/2023 Type 2 diabetes mellitus wit h hyperglycemia, with long-term current use of insulin 01/07/2023 Assessment & Plan (01/28/2025 7:49 AM EDT): Check blood sugars daily, notify if <70 or >200. Take medications (pills or insulin) as directed. Monitor for s/s of hypoglycemia (sweaty, dizziness, nausea, vomiting, or shakiness). Watch for increase in thirst, urination, or appetite. Inspect feet frequently monitoring for open wounds , and also recommend yearly eye exam. Pt should attempt to remain as physically active as chronic conditions allow, as well as trying to follow a diet low in carbohydrates, and simple sugars. Is under the care of dr anand for this Current meds: basal/bolus insulin, kirti, statin Most recent JUDITH: Assessment & Plan (11/20/2024 8:41 PM EDT): During the appointment today all pertinent labs, imaging, health maintenance, and glucose readings were reviewed. Encouraged to check blood glucose throughout the day with some fasting and some PP readings. They are to bring their glucose meter/cgm in to all appointments. All of the patients questions, treatment options, and current care plan and goals were discussed. A copy of this along with pertinent instructions were given to the patient at the end of the appointment. The patient voices understanding of all of this and is to call in between appointments if they have any problems or questions. Dante Santos is struggling to gain control of their diabetes. I am very concerned for diabetes related complications. , Discussed dietary changes at length. Encouraged to limit simple carbs and focus more on healthy protein/fat with all meals and snacks. They should also avoid any sugary drinks. , Discussed importance of checking blood glucose regularly and bringing them in to their appointment in order for me to better adjust their medications. , Instructed on the importance of taking insulin before eating. If it has been more than 30-45 min since eating they should not give the meal dose but should just give a correction insulin dose. , Instructions given today include: Insulin instructions and Dietary education. He needs to continue to work on improving his diet and decrease portion sizes. I don't feel comfortable using incretin therapy due to his hx of pancreatitis and very high TG which puts him at continued increased risk for this. If he improves his diet and TG come down then maybe I will reconsider this. Will increase insulin to try and improve control but ultimately his diet needs to improve. Assessment & Plan (09/18/2024 7:07 AM EDT): Check blood sugars daily, notify if <70 or >200. Take medications (pills or insulin) as directed. Monitor for s/s of hypoglycemia (sweaty, dizziness, nausea, vomiting, or shakiness). Watch for increase in thirst, urination, or appetite. Inspect feet frequently monitoring for open wounds , and also recommend yearly eye exam. Pt should attempt to remain as physically active as chronic conditions allow, as well as trying to follow a diet low in carbohydrates, and simple sugars. Is under the care of dr anand for this Current meds: basal/bolus insulin, kirti, statin Assessment & Plan (07/11/2024 8:54 AM EST): Follows with Elizabeth Anand- [employer]oc Director Combat Plans Officer. Currently taking Metformin, Semglee, Insulin Aspart. Most recent A1C 11%. Assessment & Plan (06/22/2024 12:25 PM EST): During the appointment today all pertinent labs, imaging, health maintenance, and glucose readings were reviewed. Encouraged to check blood glucose throughout the day with some fasting and some PP readings. They are to bring their glucose meter/cgm in to all appointments. All of the patients questions, treatment options, and current care plan and goals were discussed. A copy of this along with pertinent instructions were given to the patient at the end of the appointment. The patient voices understanding of all of this and is to call in between appointments if they have any problems or questions. Dante Santos is struggling to gain control of their diabetes. I am very concerned for diabetes related complications. , Discussed dietary changes at length. Encouraged to limit simple carbs and focus more on healthy protein/fat with all meals and snacks. They should also avoid any sugary drinks. , Discussed importance of checking blood glucose regularly and bringing them in to their appointment in order for me to better adjust their medications. , Instructed on the importance of taking insulin before eating. If it has been more than 30-45 min since eating they should not give the meal dose but should just give a correction insulin dose. , Instructed on the proper insulin injection technique either in the abdomen, upper outer thigh, or back of the arm. They are to rotate injection sites to prevent scar tissue. , Instructions given today include: Insulin instructions and Dietary education. Will change his novolog to 50 units for all meals. The only way he is going to get better control is by improving his diet and being consistent with this. Assessment & Plan (02/08/2024 1:08 PM EDT): Most recent A1C 10%. Follows Dr. Gold, [facility] Metformin 1000mg Insulin Glagine 60u BID Last DM eye exam in June 2023 DM foot exam done in office today Continue current regimen as directed Assessment & Plan (01/02/2024 8:14 PM EDT): During the appointment today all pertinent labs, imaging, health maintenance, and glucose readings were reviewed. Encouraged to check blood glucose throughout the day with some fasting and some PP readings. They are to bring their glucose meter/cgm in to all appointments. All of the patients questions, treatment options, and current care plan and goals were discussed. A copy of this along with pertinent instructions were given to the patient at the end of the appointment. The patient voices understanding of all of this and is to call in between appointments if they have any problems or questions. Dante Santos is struggling to gain control of their diabetes. I am very concerned for diabetes related complications. , Discussed dietary changes at length. Encouraged to limit simple carbs and focus more on healthy protein/fat with all meals and snacks. They should also avoid any sugary drinks. , Instructed on the importance of taking insulin before eating. If it has been more than 30-45 min since eating they should not give the meal dose but should just give a correction insulin dose. , Instructed on the proper insulin injection technique either in the abdomen, upper outer thigh, or back of the arm. They are to rotate injection sites to prevent scar tissue. , Instructions given today include: Hypoglycemia management, Insulin instructions, and Dietary education. He is to work on being consistent with his diet and avoiding simple carbs. Ok to have snacks in between meals/insulin but needs to mainly be a protein snack if he is not taking insulin with it. Will increase basal insulin. HTN (hypertension) Assessment & Plan (01/28/2025 7:46 AM EDT): Please check blood pressure daily and record DASH diet Limit caffeine Take medication as directed Contact office if chest pain, pressure, dizziness, shortness of breath, swelling legs Recommend slow position changes Current meds; amlodipine and lisinopril Assessment & Plan (09/18/2024 7:08 AM EDT): Please check blood pressure daily and record DASH diet Limit caffeine Take medication as directed Contact office if chest pain, pressure, dizziness, shortness of breath, swelling legs Recommend slow position changes Current meds; amlodipine and lisinopril Assessment & Plan (07/11/2024 9:17 AM EST): Currently taking Amlodipine 10mg Lisinopril 20mg Does not check BP at home; Denies orthostatic changes, dizziness, cough, shortness of breath, swelling in extremities. Continue current regimen. Given BP log, advised pt to record BP and bring log back with them to next visit. Assessment & Plan (02/08/2024 1:07 PM EDT): Currently taking Amlodipine 10mg Lisinopril 20mg BP seems well controlled. Denies dizziness/shortness of breath, swelling in extremities. Continue as directed Asthma Assessment & Plan (01/28/2025 6:45 PM EDT): Current meds: albuterol prn, combivent respimat, singulair Will trial trelegy 100's to see if this helps cut down on rescue inhaler #2 samples 5D4B, exp 02/19 1 puff daily, rinse mouth after use Assessment & Plan (09/18/2024 4:20 PM EDT): Current meds: albuterol prn, combivent respimat, singulair No ICS/LABA Could not afford airsupra Insurance copays may be issue Lets try advair Assessment & Plan (02/08/2024 1:06 PM EDT): Ran out of inhalers 2-3 weeks ago, feels asthma symptoms have been worsening since. Notices symptoms are especially worse when working indoors at [employer]. Currently using Albuterol rescue inhaler several times per week. (BLU) Combivent-Respimat and Dulera(ICS and LABA); Ordered Airsupra today- given insurance discount card Will refer to pulmonology if indicated for Inspire Resolved Problems Problem Noted Date Diagnosed Date Resolved Date Pure hyperglyceridemia 09/18/202409/18 Morbid (severe) obesity due to excess calories 09/18/2024 09/18/2024 Influenza A with respiratory manifestations 08/16/2024 09/18/2024 Assessment & Plan (08/16/2024 9:55 AM EST): Productive cough/Shortness of breath/Headache/Sinus congestion/Runny nose/Body aches/Fever X4 days Denies: N/V/D Influenza A positive in office today. Will TX with Tamiflu, tessalon Perles for cough, and order CXR to rule out pneumonia. Wheezing noted on auscultation bilaterally throughout. Will TX with prednisone 40 mg x 5 days. Pending CXR results will add ATB if clinically indicated. Acute otitis externa of both ears 07/11/2024 09/18/2024 Claustrophobia 01/07/2023 09/18/2024 HLD (hyperlipidemia) 025 Assessment & Plan (07/11/2024 9:17 AM EST): Is prescribed Rosuvastatin 20mg and Fenofibrate 160mg Denies any myalgias. Will recheck Lipid Panel Today Assessment & Plan (04/09/2024 11:14 AM EDT): Is prescribed Rosuvastatin 20mg and Fenofibrate 160mg Has not been taking Crestor for nearly one year due to cost. Denies any myalgias. Pt states he will be able to moss picker RX this week and start regimen. Assessment & Plan (02/08/2024 1:09 PM EDT): Lipid panel ordered today. Continue Crestor and Fenofibrate as directed. Encounters Date Type Department Care Team Description 03/29/2025 Refill [facility] [address] [place] [address] Elizabeth Anand, DO Type 2 diabetes mellitus with other specified complication, with long-term current use of insulin (HCC) 02/16/2025 Refill [facility] [address] [place] [address] Radha Vegas NP Moderate persistent asthma, unspecified whether complicated (HCC) 02/12/2025 [facility] [address] [place] [address] Elizabeth Anand, DO 02/12/2025 Abstract [facility] [address] [place] [address] Elizabeth Anand, DO 02/11/2025 [facility] [address] [place] [address] Elizabeth Anand, DO Type 2 diabetes mellitus without complication, with long-term current use of insulin (HCC) 01/28/2025 5:30 PM EDT Office Visit [facility] [address] [place] [address] Radha Vegas NP Moderate persistent asthma, unspecified whether complicated (HCC) (Primary Dx); Obstructive sleep apnea; Primary hypertension ; Type 2 diabetes mellitus with hyperglycemia, with long-term current use of insulin (HCC); Mixed hyperlipidemia ; Class 3 severe obesity due to excess calories with serious comorbidity and body mass index (BMI) of 50.0 to 59.9 in adult ([facility]); Cervical pain (neck); Arthritis of both hands; Chest tightness 01/28/2025 Bamboo flowsheet [facility] [address] [place] [address] Radha Vegas NP 01/24/2025 [facility] [address] [facility] [place] [address] Radha Vegas NP Moderate persistent asthma, unspecified whether complicated (HCC) 01/23/2025 [facility] [address] [facility] [place] [address] Carroll Del Valle MD Moderate persistent asthma, unspecified whether complicated (HCC) 01/23/2025 Refill [facility] [address] [facility] [place] [phone] Radha Vegas NP Moderate persistent asthma, unspecified whether complicated (HCC) from Last 3 Months Immunizations Immunization Administration Dates Next Due DTP 1986 MMR 02/02/1999 OPV 1986 Tdap 01/15/2020 Varicella 02/02/1999 Family History Medical History Relation Name Comments No Known Problems Father Diabetes Mother Patricia ruth Heart disease Mother Patricia ruth Hypertension Mother Patricia ruth Relation Name Status Comments Father Alive Mother Patricia ruth Alive Social History Tobacco Use Types Packs/Day Years Used Date Smoking Tobacco: Former Cigarettes 0.5 26.7 S tarted: 06/27/1997 Passive Smoke Exposure: Current Smokeless Tobacco: Current Tobacco Cessation:Ready to Q uit: Not Asked; Counseling Given: Not Answered Alcohol Use Standard Drinks/Week [...] Never 12/25/2023 How often do you attend mandaen or temple serv ices? Never 12/25/2023 Do you belong to any clubs o r organizations such as mandaen groups, unions, fraternal or athletic groups, or [...] Recorded Patient Health Questionnaire-2 Score 0 11/20/2024 [facility] - Occupational Stress Questionnaire Answer Date Recorded [...] Sign Reading Time Taken Comments Blood Pressure 140/88 01/28/2025 5:29 PM EDT Pulse 80 01/28/2025 5:29 PM EDT Temperature 36.9 C (98.5 F) 01/28/2025 5:29 PM EDT Respiratory Rate 22 01/28/2025 5:29 PM EDT Oxygen Saturation 96% 01/28/2025 5:29 PM EDT Inhaled Oxygen Concentration - - Weight 149 kg (328 lb 6.4 oz) 01/28/2025 5:29 PM EDT Height 172.7 cm (5' 8 ) 11/20/2024 4:19 PM EDT Body Mass Index 49.93 11/20/2024 4:19 PM EDT Plan of Treatment Not on file Insurance [employer] Care Teams Behavioral Scientist Relationship Specialty Start Date End Date Carroll Del Valle MD [address] [place] [address] PCP - General Family Medicine 06/18/24 Alison Wilson MD [address] [place] [address] Referring Physician Neurology 04/28/23 Anabel Waggoner NP [address] [place] [address] Nurse Practitioner Family Medicine 07/25/24
--- OUTSIDE RECORDS SUMMARY | 2025-04-10 10:20 | XMS_ITS | Encounter Summary ---
Author Organization [facility] Address [address] [place] [address] Care Team Providers Care Shell Mold Bonder Name Role Phone Alsion Wilson MD Unavailable [phone] Carroll Del Valle MD Primary Care Provider [phone] Anabel Waggoner NP Unavailable [phone] Reason for Visit * Reason Comments Med Refill Encounter Details Date Type Department Care Team (Late st Contact Info) Description [facility] [address] [place] [phone] Elizabeth Anand, [address] [place] [address] Type 2 diabetes mellitus with other specified complication, with long-term current use of insulin (HCC) Social History Tobacco Use Types Packs/Day [...] Never 12/25/2023 How often do you attend buddhism or jew serv ices? Never 12/25/2023 Do you belong to any clubs o r organizations such as buddhism groups, unions, fraternal or athletic groups, or [...] Recorded Patient Health Questionnaire-2 Score 0 11/20/2024 [facility] - [facility] [...] on file documented as of this encounter Miscellaneous Notes * Telephone Encounter - Litzy Joseph LPN - 03/29/2025 9:06 AM EDT Last ov 11/20/2024 RX sent in per Dr Johnson documented in this encounter Plan of Treatment Not on file documented as of this encounter Visit Diagnoses Diagnosis Type 2 diabetes mellitus with other specified complication, with long-term current use of insulin (HCC) documented in this encounter Care Teams Shell Mold Bonder Relationship Specialty Start Date End Date Carroll Del Valle MD [address] [place] [id number] PCP - General Family Medicine 06/18/24 Alison Wilson MD [address] [place] [id number] Referring Physician Neurology 04/28/23 Anabel Waggoner NP [address] [place] [id number] Nurse Practitioner Family Medicine 07/25/24 documented as of this encounter
--- OUTSIDE RECORDS SUMMARY | 2025-04-10 10:20 | XMS_ITS | Encounter Summary ---
Author Organization [facility] Address [address] [place] [address] Care Team Providers Care Beater Tender Name Role Phone Alison Wilson MD Unavailable [phone] Hermes Willard MD Primary Care Provider [phone] Carroll Del Valle MD Primary Care Provider [phone] Anabel Waggoner NP Unavailable [phone] Encounter Details Date Type Department Care Team (Late st Contact Info) Description 01/07/2023 Abstract [facility] [address] [facility] [address] [place] [address] Elizabeth Anand, DO [address] [facility] [address] [place] [address] Social History Tobacco Use Types Packs/Day Years Used Date Smoking Tobacco: Every Day Cigarettes Started: 1997 Smokeless Tobacco: Never Alcohol Use Standard Drinks/Week Comments Yes 4 (1 standard drink = 0.6 oz pure alcohol) caffeine: more than 4 cups per day AUDIT-C Answer Date Recorded Q1: How often do you have a drink containing alc ohol? 2-3 times a week 01/07/2023 Q2: How many drinks containi ng alcohol do you have on a typical day when you are drinking? 3 or 4 01/07/2023 Q3: How often do you have si x or more drinks on one occasion? Never 01/07/2023 Sex and Gender Information Value Date Recorded Sex Assigned at Not on file Legal Sex Male 6:55 PM EDT Gender Identity Not on file Sexual Orientation Not on file documented as of this encounter Functional Status * AUDIT-C Score Answer Date of Assessment Author 4 01/07/2023 9:09 AM Vince Mathur LPN * Question Answer Date of Assessment Author Q1: How often do you have a drink containing alcohol? 2-3 times a week 01/07/2023 9:09 AM Litzy Mathur LPN Q2: How many drinks containing alcohol do you have on a typical day when you are drinking? 3 or 4 01/07/2023 9:09 AM Dalton Mathur LPN Q3: How often do you have six or more drinks on one occasion? Never 01/07/2023 9:09 AM Litzy Mathur LPN documented as of this encounter Plan of Treatment Not on file documented as of this encounter Visit Diagnoses Not on filedocumented in this encounter Care Teams Beater Tender Relationship Specialty Start Date End Date Hermes Willard MD [address] [place] [id number] PCP - General Family Medicine 12/22/23 06/17/24 Carroll Del Valle MD [address] [place] [id number] PCP - General Family Medicine 06/18/24 Alison Wilson MD [address] [place] [address] Referring Physician Neurology 04/28/23 Anabel Waggoner NP [address] [place] [address] Nurse Practitioner Family Medicine 07/25/24 documented as of this encounter
--- OUTSIDE RECORDS SUMMARY | 2025-04-10 10:20 | XMS_ITS | Encounter Summary ---
Author Organization [facility] Address [address] [place] [address] Care Team Providers Care Security Manager Name Role Phone Alison Wilson MD Unavailable [phone] Carroll Del Valle MD Primary Care Provider [phone] Anabel Waggoner NP Unavailable [phone] Encounter Details Date Type Department Care Team (Late st Contact Info) Description 08/16/2024 External Result Encounter [facility] [address] [facility] [place] [id number] Anabel Waggoner NP Social History Tobacco Use [...] Never 12/25/2023 How often do you attend buddhist or spiritism serv ices? Never 12/25/2023 Do you belong to any clubs o r organizations such as buddhist groups, unions, fraternal or athletic groups, or [...] Recorded Patient Health Questionnaire-2 Score 0 06/18/2024 [facility] - Occupational Stress Questionnaire Answer [...] Name Priority Date/Time Associated Diagnosis Comments XR CHEST 2 VIEWS 08/16/2024 11:0 7 AM EST documented in this encounter Results * XR chest 2 views (08/16/2024 11:07 AM EST) Anatomical Region Laterality Modality Chest Radiographic Rupal ging 08/16/2024 11:0 7 AM EST Narrative 08/16/2024 11:06 AM EST THIS EXAM WAS PERFORMED AT [facility] Procedure: Chest x-ray performed Number of views:2 History:Shortness of breath influenza Comparison:06/03/2024 Findings: The heart and lungs show no acute findings, and the mediastinum and manoj are grossly negative . Impression: 1. No acute change. Finalized by Neel Carrion MD on 08/16/2024 11:06 AM Procedure Note Radiology, Radiologist, MD - 08/16/2024 THIS EXAM WAS PERFORMED AT [facility] Procedure: Chest x-ray performed Number of views:2 History:Shortness of breath influenza Comparison:06/03/2024 Findings: The heart and lungs show no acute findings, and the mediastinumand manoj are grossly negative . Impression: 1. No acute change. Finalized by Neel Carrion MD on 08/16/2024 11:06 AM Anabel Waggoner CHANGE ATTENDANT IMG XR PROCEDURES Final Result documented in this encounter Visit Diagnoses Not on filedocumented in this encounter Care Teams Security Manager Relationship Specialty Start Date End Date Carroll Del Valle MD [address] [place] [phone] PCP - General Family Medicine 06/18/24 Alison Wilson MD [address] [place] [address] Referring Physician Neurology 04/28/23 Anabel Waggoner NP [address] [place] [address] Nurse Practitioner Family Medicine 07/25/24 documented as of this encounter
--- OUTSIDE RECORDS SUMMARY | 2025-04-10 10:20 | XMS_ITS | Encounter Summary ---
Author Organization [facility] Address [address] [place] [address] Care Team Providers Care Honing Machine Operator Tool Name Role Phone Alison Wilson MD Unavailable [phone] Hermes Willard MD Primary Care Provider [phone] Carroll Del Valle MD Primary Care Provider [phone] Anabel Waggoner NP Unavailable [phone] Reason for Visit * Reason Onset Date Comments Med Refill Novolog approval 12/28/2023 Encounter Details Date Type Department Care Team (Late st Contact Info) Description 12/28/2023 [facility] [address] [facility] [address] [place] [id number] Elizabeth Anand, [address] [facility] [address] [place] [address] Type 2 diabetes mellitus without complication, with [...] Never 12/25/2023 How often do you attend spiritism or presybeterian serv ices? Never 12/25/2023 Do you belong to any clubs o r organizations such as spiritism groups, unions, fraternal or athletic groups, or [...] medical care, and heating? Very hard 12/25/2023 [facility] - Occupational [...] encounter Miscellaneous Notes * Telephone Encounter - María Elena Mata LPN - 01/04/2024 8:27 AM EDT Novolog approved 01/03/24-01/01/25 documented in this encounter Plan of Treatment Not on file documented as of this encounter Visit Diagnoses Diagnosis Type 2 diabetes mellitus without complication, with long-term current use of insulin (HCC) documented in this encounter Care Teams Honing Machine Operator Tool Relationship Specialty Start Date End Date Hermes Willard MD [address] [place] [id number] PCP - General Family Medicine 12/22/23 06/17/24 Carroll Del Valle MD [address] [place] [phone] PCP - General Family Medicine 06/18/24 Alison Wilson MD [address] [place] [address] Referring Physician Neurology 04/28/23 Anabel Waggoner NP [address] [place] [address] Nurse Practitioner Family Medicine 07/25/24 documented as of this encounter
--- OUTSIDE RECORDS SUMMARY | 2025-04-10 10:20 | XMS_ITS | Encounter Summary ---
Author Organization [facility] Address [address] [place] [address] Care Team Providers Care Deckhand Fishing Vessel Name Role Phone Alison Wilson MD Unavailable [phone] Hermes Willard MD Primary Care Provider [phone] Carroll Del Valle MD Primary Care Provider [phone] Anabel Waggoner NP Unavailable [phone] Reason for Visit * Reason Comments Med Refill Encounter Details Date Type Department Care Team (Late st Contact Info) Description 05/31/2024 Refill [facility] [address] [facility] [address] [place] [address] Elizabeth Anand, DO [address] [facility] 230 [place] [address] Type 2 diabetes mellitus without complication, with long-term current use of insulin (HCC) Social History Tobacco Use Types Packs/Day Years Used Date Smoking Tobacco: Every Day Cigarettes 0.5 27.8 Started: 06/27/1997 Passive Smoke Exposure: Current Smokeless Tobacco: [...] Never 12/25/2023 How often do you attend congregational or alevism serv ices? Never 12/25/2023 Do you belong to any clubs o r organizations such as congregational groups, unions, fraternal or athletic groups, or [...] Date Recorded Patient Health Questionnaire-2 Score 0 02/08/2024 [facility] - Occupational Stress Questionnaire Answer Date [...] (HCC) documented in this encounter Care Teams Deckhand Fishing Vessel Relationship Specialty Start Date End Date Hermes Willard MD [address] [place] [phone] PCP - General Family Medicine 12/22/23 06/17/24 Carroll Del Valle MD [address] [place] [address] PCP - General Family Medicine 06/18/24 Alison Wilson MD [address] [place] [address] Referring Physician Neurology 04/28/23 Anabel Waggoner NP [address] [place] [address] Nurse Practitioner Family Medicine 07/25/24 documented as of this encounter
--- NOTE | 2025-04-10 10:54 | PM.CN ---
Consult Note: HPI Data of Consult Patient: new to practice Consult date: 04/10/25 Requesting Physician: Enriqueta Barakat NP Primary Care Provider: Dr Chu Consult Narrative Reason for consult: Neck pain Narrative: Dante Santos a 40 year old male with chronic neck pain and BUE presents for evaluation. pt notes longstanding pain > 5 years without known cause or injury. pt cannot recall if he has personal or family hx of rheumatoid/inflammatory arthritis, does not recall any prior workup. reports prior emg showed arthritis, we were able to obtain a copy of his BUE EMG from 08/31/22 which reveals bilateral C5 radiculopathy. Patient has completed a recent cervical xray which shows diffuse arthritis and DDD. no recent PT or advanced imaging. Has failed tylenol, motrin, naproxen, nabumetone, meloxicam, and celebrex. Pain today 8/10 in neck, shoulders, and hands with numbness tingling to bilateral hands. notes pain increases with activity and lifting. cc:: CC: Enriqueta Barakat NP Review of Systems ROS Musculoskeletal Reports: neck pain, extremity pain and joint pain PFSH PFSH Social History Smoking status: Current every day smoker Meds Home Medications and Allergies Home Medications ?Medication ?Instructions ?Recorded ?Confirmed ?Type albuterol sulfate 90 mcg/actuation 2 puff inhalation Q4H PRN 03/18/23 03/18/23 History aerosol inhaler shortness of breath or wheezing doxycycline hyclate 100 mg tablet 100 mg PO BID 10 days #20 tabs 03/18/23 Rx fenofibrate 160 mg tablet 160 mg PO DAILY 03/18/23 03/18/23 History insulin aspart U-100 100 unit/mL 1 sliding scale dose subcut DAILY 03/18/23 03/18/23 History (3 mL) subcutaneous pen insulin glargine-yfgn 100 unit/mL 50 unit subcut BID 03/18/23 03/18/23 History (3 mL) subcutaneous pen ipratropium 20 mcg-albuterol 100 1 puff inhalation BID 03/18/23 03/18/23 History mcg/actuation mist for inhalation (Combivent Respimat) lisinopril 20 mg tablet 20 mg PO DAILY 03/18/23 03/18/23 History metformin 1,000 mg tablet 1,000 mg PO BID 03/18/23 03/18/23 History rosuvastatin 20 mg tablet 20 mg PO DAILY 03/18/23 03/18/23 History sertraline 50 mg tablet 75 mg PO Q24H 03/18/23 03/18/23 History Allergies Allergy/AdvReac Type Severity Reaction Status Date / Time No Known Drug Allergies Allergy Verified 03/18/23 08:40 Exam Constitutional Documenting provider has reviewed patient's vital signs: yes Common normals: no apparent distress, oriented x3, healthy appearing, alert and well nourished General appearance: cooperative HENMT Common normals: normocephalic, hearing grossly normal bilaterally and moist oral mucous membranes Head and scalp: normocephalic Eye Common normals: PERRL Pupil: PERRL Neck & C-Spine General: normal visual inspection Cervical spine: cervical ROM abnormal lateral flexion to the right decreased, lateral flexion to the left decreased, rotation to the left decreased and rotation to the right decreased, pain with cervical ROM and cervical spine tenderness Other: positive spurlings persistent radiculopathy to bilateral C5,6 strength 5/5 in BUE Chest Common normals: inspection of chest normal Respiratory Common normals: normal respiratory effort, no retractions and no use of accessory muscles Neuro Common normals: oriented x3 Sensorium/orientation: alert Psych Common normals: mental status grossly normal, thought process normal, cooperative, affect normal, speech normal and activity/motor behavior normal Speech: normal speech Thought process: normal thought process Results Additional Findings Additional findings: If on a controlled substance or opioids, I have checked an OARRS report on this patient and there are no aberrancies noted in the prescribing history.??If on a controlled substance or opioid a drug screen was completed and reviewed within the last year, and if there has not been a drug screen completed we ordered one today to monitor higher risk, state monitored pain medication use. As part of providing excellent, safe, comprehensive care, the following was completed at our patient's visit: 1. A medication reconciliation and review to ensure accurate knowledge of current/active medications, including asking our patients to inform us about any [id number] medications or herbal remedies/nutritional supplements/alternative remedies. 2. A review to specifically ensure our patients have had annual screening for screening for depression, screening for tobacco use, and screening for unhealthy alcohol use. For concerning screenings had a discussion with the patient, provided patient education, and recommended follow-up with primary care provider when appropriate. If patient noted with a risk of falling, they received education on strength, gait, and balance training to prevent future risk of falling. Portions of this note may have been carried over from the previous visit and updated as appropriate. Please note this office utilizes paper charting in addition to the electronic medical record. A list of current medications, vitals, and PMH is available there as the clinical staff outside of myself do not have access to [employer] charting during the clinic day operations. As part of providing quality comprehensive care the current medications, vitals, and PMH were reviewed in the paper chart. Assessment and Plan Assessment and Plan (1) Cervical radiculopathy: (2) Degenerative disc disease, cervical: (3) Cervical spondylosis: (4) Myalgia, other site: Plan New pt evaluation for chronic neck and BUE pain. as noted above pt endorses severe pain unresponsive to numerous NSAIDs. at this time recommend pt trial PT for cervical radiculopathy and spondylosis. will update cervical MRI if symptoms persist. start tizanidine 4mg tablets take 1-2 BID PRN pain/spasms/headaches. risks vs benefits reviewed. If patient has not previously had workup for inflammatory arthritis i recommend his pcp consider this further, pt cannot recall and does not think hes been evaluated by rheumatology in the past. pt would like to trial PT in [facility], PT order provided to pt to arrange. f/u in office once PT complete around 8 weeks, sooner if discharged from PT.
== END 2025-04-10 10:17 | disposition home or self-care (01) ==
LOC: PM 10:17
PROVIDERS: PCP Family Medicine; Visit Provider Nurse Practitioner
DX: M54.12 Radiculopathy, cervical region (principal); M50.30 Other cervical disc degeneration, unspecified cervical region; M47.812 Spondylosis without myelopathy or radiculopathy, cervical region; M79.18 Myalgia, other site
CPT/HCPCS: G0463

== ENCOUNTER 2025-05-15 08:35 | Outpatient (OUT) | payer OTHER, SELFPAY ==
--- NOTE | 2025-05-15 09:02 | PM.CN ---
Consult Note: HPI Data of Consult Patient: new to practice Consult date: 04/10/25 Requesting Physician: Enriqueta Barakat NP Primary Care Provider: CARYL DRIVER Consult Narrative Reason for consult: Neck pain and BUE pain Narrative: Dante Santos a 40 year old male with chronic neck pain and BUE presents for evaluation. pt notes longstanding pain > 5 years without known cause or injury. BUE EMG from 08/31/22 which reveals bilateral C5 radiculopathy. Patient has completed a recent cervical xray which shows diffuse arthritis and DDD. no recent PT or advanced imaging. Has failed tylenol, motrin, naproxen, nabumetone, meloxicam, and celebrex. Pain today 8/10 in neck, shoulders, and hands with numbness tingling to bilateral hands. notes pain increases with activity and lifting. since last visit patient started tizanidine prn but notes severe drowsiness with 2-4mg, did not start PT. cc:: CC: Enriqueta Barakat NP Review of Systems ROS Musculoskeletal Reports: neck pain, extremity pain and joint pain PFSH PFSH Social History Smoking status: Current every day smoker Meds Home Medications and Allergies Home Medications ?Medication ?Instructions ?Recorded ?Confirmed ?Type fenofibrate 160 mg tablet 160 mg PO DAILY 03/18/23 03/18/23 History insulin aspart U-100 100 unit/mL 50 unit subcut DAILY 03/18/23 04/10/25 History (3 mL) subcutaneous pen insulin glargine-yfgn 100 unit/mL 50 unit subcut BID 03/18/23 03/18/23 History (3 mL) subcutaneous pen lisinopril 20 mg tablet 20 mg PO DAILY 03/18/23 03/18/23 History rosuvastatin 20 mg tablet 20 mg PO DAILY 03/18/23 03/18/23 History amlodipine 10 mg tablet mg 04/10/25 History celecoxib 100 mg capsule (Celebrex) 100 mg PO BID 04/10/25 04/10/25 History tizanidine 4 mg tablet See Rx Instructions .Route 04/10/25 Rx .COMPLEX PRN muscle spasticity #120 tabs Allergies Allergy/AdvReac Type Severity Reaction Status Date / Time No Known Drug Allergies Allergy Verified 03/18/23 08:40 Exam Constitutional Documenting provider has reviewed patient's vital signs: yes Common normals: no apparent distress, oriented x3, healthy appearing, alert and well nourished General appearance: cooperative HENMT Common normals: normocephalic, hearing grossly normal bilaterally and moist oral mucous membranes Head and scalp: normocephalic Eye Common normals: PERRL Pupil: PERRL Neck & C-Spine General: normal visual inspection Cervical spine: cervical ROM abnormal lateral flexion to the right decreased, lateral flexion to the left decreased, rotation to the left decreased and rotation to the right decreased, pain with cervical ROM and cervical spine tenderness Other: positive spurlings persistent radiculopathy to bilateral C5,6 strength 5/5 in BUE Chest Common normals: inspection of chest normal Respiratory Common normals: normal respiratory effort, no retractions and no use of accessory muscles Neuro Common normals: oriented x3 Sensorium/orientation: alert Psych Common normals: mental status grossly normal, thought process normal, cooperative, affect normal, speech normal and activity/motor behavior normal Speech: normal speech Thought process: normal thought process Results Additional Findings Additional findings: If on a controlled substance or opioids, I have checked an OARRS report on this patient and there are no aberrancies noted in the prescribing history.??If on a controlled substance or opioid a drug screen was completed and reviewed within the last year, and if there has not been a drug screen completed we ordered one today to monitor higher risk, state monitored pain medication use. As part of providing excellent, safe, comprehensive care, the following was completed at our patient's visit: 1. A medication reconciliation and review to ensure accurate knowledge of current/active medications, including asking our patients to inform us about any jkry-ilz-lutnpdy medications or herbal remedies/nutritional supplements/alternative remedies. 2. A review to specifically ensure our patients have had annual screening for screening for depression, screening for tobacco use, and screening for unhealthy alcohol use. For concerning screenings had a discussion with the patient, provided patient education, and recommended follow-up with primary care provider when appropriate. If patient noted with a risk of falling, they received education on strength, gait, and balance training to prevent future risk of falling. Portions of this note may have been carried over from the previous visit and updated as appropriate. Please note this office utilizes paper charting in addition to the electronic medical record. A list of current medications, vitals, and PMH is available there as the clinical staff outside of myself do not have access to [employer] charting during the clinic day operations. As part of providing quality comprehensive care the current medications, vitals, and PMH were reviewed in the paper chart. Assessment and Plan Assessment and Plan (1) Cervical radiculopathy: Assessment and Plan: [place] 28% (2) Degenerative disc disease, cervical: (3) Cervical spondylosis: (4) Myalgia, other site: Plan start PT as previously ordered dc tizanidine due to side effects start gabapentin 300mg HS for 1 week increasing to BID as tolerated. risks vs benefits reviewed. pt to call our office if he's noticing side effects f/u once PT complete
== END 2025-05-15 08:36 | disposition home or self-care (01) ==
LOC: PM 08:35
PROVIDERS: PCP Family Medicine; Visit Provider Nurse Practitioner
DX: M54.12 Radiculopathy, cervical region (principal); M50.30 Other cervical disc degeneration, unspecified cervical region; M47.812 Spondylosis without myelopathy or radiculopathy, cervical region; M79.18 Myalgia, other site
CPT/HCPCS: G0463